=== PATIENT | female | born 1990 | race Caucasian/White ===

== ENCOUNTER 2019-12-28 11:38 | Outpatient (CLI) | payer BC, SELFPAY ==
[2019-12-28 11:51] LABS: Basophils Absolute Auto 0.1 K/mm3 (0.0-0.1); Basophils Percent Auto 0.9 % (0.2-1.2); Eosinophils Absolute Auto 0.1 K/mm3 (0-0.3); Eosinophils Percent Auto 1.5 % (0-4.4); Hemoglobin 14.9 g/dL (12.0-15.0); Immature Granulocyte Absolute 0.02 K/mm3 (0.00-0.031); Immature Granulocyte Percent A 0.3 % (0-0.5); Lymphocytes Absolute Auto 1.22 K/mm3 (0.9-3.2); Lymphocytes Percent Auto 17.7 % (18.3-44.2); Mean Corpuscular HGB Conc 33.1 g/dl (32-36); Mean Corpuscular Hemoglobin 30.6 pg (26-34); Mean Corpuscular Volume 92.4 fl (80-100); Mean Platelet Volume 11.9 fl (7.4-10.4); Monocytes Absolute Auto 0.5 K/mm3 (0.1-0.6); Monocytes Percent Auto 7.7 % (2.6-8.5); Neutrophils Percent Auto 71.9 % (45.5-73.1); Platelet Count Result 240 k/mm3 (150-375); Red Blood Count 4.87 M/mm3 (4.2-5.4); Red Cell Distribution Width 12.4 % (11.5-14.5); White Blood Count 6.9 K/mm3 (4.5-10.0)
[2019-12-28 16:32] LABS: Iron 65 ug/dL (37-170)
[2019-12-28 16:42] LABS: Percent Iron Saturation 21 % (20-50)
[2019-12-28 16:52] LABS: Alanine Aminotransferase 11 U/L (4-35); Albumin Level 4.4 g/dL (3.5-5.1); Alkaline Phosphatase 54 U/L (38-126); Aspartate Amino Transferase 21 U/L (14-36); Bilirubin,Total 0.4 mg/dL (0.2-1.3); Blood Urea Nitrogen 10 mg/dL (7-17); Calcium 9.4 mg/dL (8.4-10.2); Carbon Dioxide 24 mmol/L (22-30); Chloride 105 mmol/L (98-107); Estimated Glomerular Filt Rate > 60; Glucose 77 mg/dL (65-105); Sodium 138 mmol/L (137-145)
== END 2019-12-28 11:39 | disposition home or self-care (01) ==
LOC: ANHLAB 11:39
PROVIDERS: PCP Internal Medicine Hematology & Oncology; Visit Provider Internal Medicine Hematology & Oncology
DX: E83.110 Hereditary hemochromatosis (principal)
CPT/HCPCS: 36415; 80053; 82728; 83540; 83550; 85025

== ENCOUNTER 2020-04-03 08:24 | Outpatient (CLI) | payer BC, SELFPAY ==
[2020-04-03 08:52] LABS: Basophils Absolute Auto 0.1 K/mm3 (0.0-0.1); Basophils Percent Auto 1.1 % (0.2-1.2); Eosinophils Absolute Auto 0.2 K/mm3 (0-0.3); Eosinophils Percent Auto 3.4 % (0-4.4); Hematocrit 45.6 % (37.0-47.0); Hemoglobin 15.6 g/dL (12.0-15.0); Immature Granulocyte Absolute 0.01 K/mm3 (0.00-0.031); Immature Granulocyte Percent A 0.2 % (0-0.5); Lymphocytes Absolute Auto 1.28 K/mm3 (0.9-3.2); Mean Corpuscular HGB Conc 34.2 g/dl (32-36); Mean Corpuscular Hemoglobin 31.2 pg (26-34); Mean Corpuscular Volume 91.2 fl (80-100); Mean Platelet Volume 11.9 fl (7.4-10.4); Monocytes Absolute Auto 0.5 K/mm3 (0.1-0.6); Monocytes Percent Auto 9.7 % (2.6-8.5); Neutrophils Absolute Auto 3.5 K/mm3 (1.3-6.7); Neutrophils Percent Auto 62.6 % (45.5-73.1); Platelet Count Result 240 k/mm3 (150-375); Red Cell Distribution Width 12.1 % (11.5-14.5); White Blood Count 5.6 K/mm3 (4.5-10.0)
[2020-04-03 12:40] LABS: Iron 83 ug/dL (37-170)
[2020-04-03 12:47] LABS: Alanine Aminotransferase 9 U/L (4-35); Albumin Level 4.5 g/dL (3.5-5.1); Alkaline Phosphatase 52 U/L (38-126); Anion Gap 8 mmol/L (8-16); Aspartate Amino Transferase 18 U/L (14-36); Bilirubin,Total 0.3 mg/dL (0.2-1.3); Blood Urea Nitrogen 13 mg/dL (7-17); Calcium 9.6 mg/dL (8.4-10.2); Carbon Dioxide 27 mmol/L (22-30); Chloride 102 mmol/L (98-107); Estimated Glomerular Filt Rate > 60; Glucose 92 mg/dL (65-105); Potassium 4.1 mmol/L (3.4-5.0); Sodium 137 mmol/L (137-145)
[2020-04-03 12:49] LABS: Percent Iron Saturation 24 % (20-50)
== END 2020-04-03 08:25 | disposition home or self-care (01) ==
LOC: ANHLAB 08:29
PROVIDERS: PCP Internal Medicine; Visit Provider Internal Medicine Hematology & Oncology
DX: E83.110 Hereditary hemochromatosis (principal)
CPT/HCPCS: 36415; 80053; 82728; 83540; 83550; 85025

== ENCOUNTER 2020-06-28 10:36 | Outpatient (CLI) | payer BC, SELFPAY ==
[2020-06-28 11:19] LABS: Basophils Absolute Auto 0.1 K/mm3 (0.0-0.1); Basophils Percent Auto 1.1 % (0.2-1.2); Eosinophils Absolute Auto 0.1 K/mm3 (0-0.3); Eosinophils Percent Auto 1.6 % (0-4.4); Hematocrit 45.1 % (37.0-47.0); Hemoglobin 15.7 g/dL (12.0-15.0); Immature Granulocyte Absolute 0.03 K/mm3 (0.00-0.031); Immature Granulocyte Percent A 0.4 % (0-0.5); Lymphocytes Absolute Auto 1.67 K/mm3 (0.9-3.2); Lymphocytes Percent Auto 23.6 % (18.3-44.2); Mean Corpuscular HGB Conc 34.8 g/dl (32-36); Mean Corpuscular Hemoglobin 31.1 pg (26-34); Mean Corpuscular Volume 89.3 fl (80-100); Mean Platelet Volume 12.4 fl (7.4-10.4); Monocytes Absolute Auto 0.6 K/mm3 (0.1-0.6); Monocytes Percent Auto 8.1 % (2.6-8.5); Neutrophils Absolute Auto 4.6 K/mm3 (1.3-6.7); Neutrophils Percent Auto 65.2 % (45.5-73.1); Platelet Count Result 244 k/mm3 (150-375); Red Blood Count 5.05 M/mm3 (4.2-5.4); Red Cell Distribution Width 11.4 % (11.5-14.5); White Blood Count 7.1 K/mm3 (4.5-10.0)
[2020-06-28 11:35] LABS: Alanine Aminotransferase 16 U/L (4-35); Albumin Level 4.4 g/dL (3.5-5.1); Alkaline Phosphatase 48 U/L (38-126); Anion Gap 9 mmol/L (8-16); Aspartate Amino Transferase 26 U/L (14-36); Bilirubin,Total 0.7 mg/dL (0.2-1.3); Blood Urea Nitrogen 13 mg/dL (7-17); Calcium 9.7 mg/dL (8.4-10.2); Carbon Dioxide 27 mmol/L (22-30); Chloride 102 mmol/L (98-107); Cholesterol 154 mg/dL (0-200); Estimated Glomerular Filt Rate > 60; Glucose 85 mg/dL (65-105); HDL Direct 66 mg/dL; Potassium 4.3 mmol/L (3.4-5.0); Sodium 138 mmol/L (137-145); Triglycerides 68 mg/dL (<150)
[2020-06-28 11:46] LABS: LDL Cholesterol Direct 65 mg/dL
[2020-06-28 12:40] LABS: Folic Acid 14.6 ng/mL (2.76->20)
== END 2020-06-28 10:37 | disposition home or self-care (01) ==
PROVIDERS: PCP Internal Medicine; Visit Provider Clinical Nurse Specialist
DX: R41.3 Other amnesia (principal); E83.119 Hemochromatosis, unspecified; G43.909 Migraine, unspecified, not intractable, without status migrainosus; Z13.220 Encounter for screening for lipoid disorders
CPT/HCPCS: 36415; 80053; 80061; 82607; 82746; 84443; 85025

== ENCOUNTER 2020-09-11 14:28 | Outpatient (CLI) | payer BC, SELFPAY ==
--- NOTE | 2020-09-11 14:34 | ECHO_ITS ---
Patient Info Name: Rosemary Browning Age: 29 years : 1990 Gender: Female Ht: 67 in Wt: 145 lbs BSA: 1.77 m2 HR: 55 bpm BP: 120 / 86 mmHg Heart Rhythm: Bradycardia, Sinus Rhythm Technical Quality: Good Exam Date: 09/11/2020 2:52 PM Exam Location: [facility] Pulmonary Patient Status: Outpatient Admit Date: 09/11/2020 Staff Ordering Physician: Lisa Hendricks Passenger Coach Driver: Ha Thompson RDCS Attending Provider: Lisa Hendricks Referring Physician: Ruthie STROUD; Exam Type: CA echo doppler w bubble study Study Info Indications R55 - Syncope and collapse Complete two-dimensional, color flow and Doppler transthoracic echocardiogram is performed with agitated saline. Contrast/Agitated Saline Contrast/Ag. Saline: Agitated Saline Amount: 18.00 ml Administered By: Leidy Osuna RN Existing IV Access: Yes History/Risk Factors Syncope and collapse; tachycardia. Summary 1. Left ventricular chamber dimension is normal. 2. Left ventricular systolic function is normal, estimated at 60-65%. 3. The left ventricular diastolic function is normal. 4. E/e' 6 is not elevated. Left Ventricle E/e' 6 is not elevated. Left ventricular chamber dimension is normal. Left ventricular systolic function is normal, estimated at 60-65%. The left ventricular diastolic function is normal. Right Ventricle Right ventricular chamber dimension is normal. Right ventricular systolic function is normal. Left Atria Left atrial chamber dimension is normal. Right Atria Right atrial chamber dimension is normal. Atrial Septum Agitated saline injection with and without valsalva maneuver opacified right sided cardiac chambers without shunt to left sided cardiac chambers. Intact interatrial septum visualized by agitated saline imaging. Aortic Valve The aortic valve is probable trileaflet. There is no aortic valve stenosis. There is no aortic valve regurgitation. Pulmonic Valve There is no pulmonic regurgitation. Mitral Valve There is no mitral valve stenosis. There is no mitral valve regurgitation. Tricuspid Valve There is no tricuspid valve regurgitation. Pericardium/Pleural There is no pericardial effusion. Inferior Vena Cava Inferior vena cava is not well visualized. Aorta The aortic root size at the sinus of Valsalva is normal. Left Ventricular Outflow Tract Name Value Normal LVOT 2D LVOT Diameter 2.0 cm LVOT Doppler LVOT Peak Gradient 5 mmHg LVOT Mean Gradient 2 mmHg LVOT VTI 22 cm LVOT VTI/AV VTI Ratio 0.6 LVOT Stroke Volume 69 ml LVOT CO 4.0 l/min LVOT CI 2.3 l/min/m2 Mitral Valve Name Value Normal
--- NOTE | 2020-09-14 11:47 | WPDHOLTEREM ---
Holter/Event Monitor Holter/Event Monitor Date of procedure: 09/11/20 Procedure Type: 48 hour holter monitor Indications: Syncope Conclusion: 1. 48 hour holter monitor on 09/11/20. 2. Underlying rhythm is sinus rhythm. HR range 43-188 bpm; average HR 68 bpm. Fast HR at 188 bpm at 12:57 pm. 3. No premature supraventricular complexes. No supraventricular tachycardia. 4. No premature ventricular complexes. No ventricular tachycardia. 5. No sinoatrial or atrioventricular blocks. No significant pauses greater than 2 seconds. 6. Patient reports symptoms of chest tightness, lightheadedness, heart racing which demonstrate sinus rhythm, HR range 50-118 bpm.
== END 2020-09-11 14:29 | disposition home or self-care (01) ==
LOC: ANHCARD 14:28
PROVIDERS: PCP Internal Medicine; Visit Provider Clinical Nurse Specialist
DX: R55 Syncope and collapse (principal)
CPT/HCPCS: 93225; 93226; 93306; 96375

== ENCOUNTER 2020-09-25 08:37 | Outpatient (CLI) | payer BC, SELFPAY ==
[2020-09-25 08:57] LABS: Basophils Absolute Auto 0.1 K/mm3 (0.0-0.1); Basophils Percent Auto 1.8 % (0.2-1.2); Eosinophils Absolute Auto 0.2 K/mm3 (0-0.3); Eosinophils Percent Auto 3.6 % (0-4.4); Hematocrit 44.9 % (37.0-47.0); Hemoglobin 15.7 g/dL (12.0-15.0); Immature Granulocyte Absolute 0.01 K/mm3 (0.00-0.031); Immature Granulocyte Percent A 0.2 % (0-0.5); Lymphocytes Absolute Auto 1.71 K/mm3 (0.9-3.2); Lymphocytes Percent Auto 34.1 % (18.3-44.2); Mean Corpuscular Hemoglobin 30.9 pg (26-34); Mean Corpuscular Volume 88.4 fl (80-100); Mean Platelet Volume 11.7 fl (7.4-10.4); Monocytes Absolute Auto 0.4 K/mm3 (0.1-0.6); Monocytes Percent Auto 8.8 % (2.6-8.5); Neutrophils Absolute Auto 2.6 K/mm3 (1.3-6.7); Neutrophils Percent Auto 51.5 % (45.5-73.1); Platelet Count Result 278 k/mm3 (150-375); Red Blood Count 5.08 M/mm3 (4.2-5.4); Red Cell Distribution Width 11.6 % (11.5-14.5)
[2020-09-25 11:39] LABS: Iron 145 ug/dL (37-170)
[2020-09-25 11:53] LABS: Percent Iron Saturation 53 % (20-50)
== END 2020-09-25 08:38 | disposition home or self-care (01) ==
LOC: ANHLAB 08:39
PROVIDERS: PCP Internal Medicine; Visit Provider Internal Medicine Hematology & Oncology
DX: E83.110 Hereditary hemochromatosis (principal)
CPT/HCPCS: 36415; 82728; 83540; 83550; 85025

== ENCOUNTER → 2020-09-25 13:12 | Outpatient (CLI) | payer BC, SELFPAY ==
--- NOTE | ~2020-09-25 | MR_ITS ---
EXAMINATION: MR brain/brain stem wo/w con DATE: 09/25/2020 13:52 INDICATION: Syncope and collapse. TECHNIQUE: Magnetic resonance imaging (MRI) of the brain and brainstem was performed without and with 13 mL MultiHance intravenous contrast. Sequences included sagittal and axial T1-weighted FSE, axial diffusion-weighted FS EPI, axial T2*-weighted GRE, axial T2-weighted FLAIR Propeller, and axial T2-we ighted Propeller. Postcontrast sequences included axial and coronal T1-weighted FSE. Apparent diffusi on coefficient (ADC) maps were created. COMPARISON: None. FINDINGS: There are 2 foci of increased T2-weighted signal intensity in the cerebral white matter, wh ich is within normal limits for the patient's age. There is no intracranial hemorrhage, acute infarct ion, or abnormal intracranial mass lesion. The ventricles are normal in size. There are mucous retent ion cysts in the maxillary sinuses. The orbits are normal. There is a trace left mastoid effusion. IMPRESSION: 1. Normal brain. Reviewed, dictated and finalized at location A. UMER EDUCATOR IMPRESSION: 1. Normal brain.
[2020-09-25 13:31] LABS: Estimated Glomerular Filt Rate > 60
== END ==
PROVIDERS: PCP Internal Medicine; Visit Provider Clinical Nurse Specialist
DX: G43.909 Migraine, unspecified, not intractable, without status migrainosus (principal); R55 Syncope and collapse
CPT/HCPCS: 70553; A9577

== ENCOUNTER 2020-11-03 08:01 | Outpatient (CLI) | payer BC, SELFPAY | END 2020-11-03 08:02 | disposition home or self-care (01) | LOC: ANHCOVIDVC 08:01 | PROVIDERS: PCP Internal Medicine | DX: Z23 Encounter for immunization (principal) | CPT/HCPCS: 0001A; 91300 ==

== ENCOUNTER 2020-11-24 07:59 | Outpatient (CLI) | payer BC, SELFPAY | END 2020-11-24 08:00 | disposition home or self-care (01) | LOC: ANHCOVIDVC 07:59 | PROVIDERS: PCP Internal Medicine | DX: Z23 Encounter for immunization (principal) | CPT/HCPCS: 0002A; 91300 ==

== ENCOUNTER → 2021-02-17 10:52 | Outpatient (CLI) | payer BC, SELFPAY ==
--- NOTE | ~2021-02-17 | US_ITS ---
EXAMINATION: US OB <=14 wk fetus w TV DATE: 02/17/2021 11:18 INDICATION: Amenorrhea. Gestational dating. TECHNIQUE: Real-time transabdominal and transvaginal obstetric ultrasound. FINDINGS: Ultrasound dated 02/09/2021 The uterus measures 8.3 x 5.4 x 6.3 cm. There is an intrauterine gestational sac, with pole yovany ntified. The crown rump length measures 0.91 cm, which correlates with a estimated gestational age o f 6 weeks 6 days. heart tones are identified measuring 121 bpm. There is a corpus luteal cyst of the right ovary measuring 2.8 cm. There is a small subchorionic hemorrhage measuring 10 x 8 x 4 m m. IMPRESSION: 1. SL IUP with an EGA of 6 weeks, 6 days (EDC by current ultrasound of 10/07/2021). 2: Small subchorionic hemorrhage. Reviewed, dictated and finalized at location A. IMPRESSION: 1. SL IUP with an EGA of 6 weeks, 6 days (EDC by current ultrasound of ). 2: Small subchorionic hemorrhage.
== END ==
PROVIDERS: Visit Provider Student in an Organized Health Care Education/Training Program
DX: Z32.00 Encounter for pregnancy test, result unknown (principal); N91.2 Amenorrhea, unspecified; O46.91 Antepartum hemorrhage, unspecified, first trimester; Z3A.01 Less than 8 weeks gestation of pregnancy
CPT/HCPCS: 76801; 76817

== ENCOUNTER → 2021-04-03 02:35 | Outpatient (CLI) | payer BC, SELFPAY ==
[2021-04-04 15:33] LABS: SARS-CoV-2 RNA PCR Negative
== END ==
PROVIDERS: PCP Internal Medicine; Visit Provider Nurse Practitioner
DX: R68.89 Other general symptoms and signs (principal); Z20.822 Contact with and (suspected) exposure to COVID-19
CPT/HCPCS: C9803; U0003; U0005

== ENCOUNTER 2021-09-20 09:40 | Outpatient (CLI) | payer BC, SELFPAY ==
--- NOTE | ~2021-09-20 | US_ITS ---
EXAMINATION: US OB limited w BPP DATE: 09/20/2021 11:57 ANIMAL EVISCERATOR INDICATION: Hypertension. TECHNIQUE: Real-time transabdominal obstetric ultrasound. FINDINGS: Ultrasound dated 02/17/2021 There is a single living fetus in vertex presentation. The placenta is anterior without placenta pre via. cardiac activity and movement is noted with a heart rate of 150 beats per minute. A mniotic fluid index is measuring 18.5 cm. Biophysical profile: breathin of 2 movement: 2 of 2 tone: 2 of 2 Amniotic flud pocket: 2 of 2 Total score: 8 of 8 IMPRESSION: 1. Single living intrauterine in vertex presentation. 2: Total biophysical profile score of 8/8. 3: Normal JANA measures 18.5 cm. Reviewed, dictated and finalized at location B. AL EVISCERATOR
[2021-09-20 10:27] LABS: Basophils Absolute Auto 0.1 K/mm3 (0.0-0.1); Basophils Percent Auto 0.6 % (0.2-1.2); Eosinophils Absolute Auto 0.2 K/mm3 (0-0.3); Eosinophils Percent Auto 1.5 % (0-4.4); Hematocrit 38.1 % (37.0-47.0); Hemoglobin 12.8 g/dL (12.0-15.0); Immature Granulocyte Absolute 0.16 K/mm3 (0.00-0.031); Immature Granulocyte Percent A 1.5 % (0-0.5); Immature Platelet Fraction Pct 17.3 % (0.9-11.2); Lymphocytes Absolute Auto 1.56 K/mm3 (0.9-3.2); Lymphocytes Percent Auto 14.4 % (18.3-44.2); Mean Corpuscular HGB Conc 33.6 g/dl (32-36); Mean Corpuscular Hemoglobin 29.5 pg (26-34); Mean Corpuscular Volume 87.8 fl (80-100); Monocytes Percent Auto 8.9 % (2.6-8.5); Neutrophils Absolute Auto 7.9 K/mm3 (1.3-6.7); Neutrophils Percent Auto 73.1 % (45.5-73.1); Platelet Count Result 198 k/mm3 (150-375); Red Blood Count 4.34 M/mm3 (4.2-5.4); Red Cell Distribution Width 12.6 % (11.5-14.5); White Blood Count 10.8 K/mm3 (4.5-10.0)
[2021-09-20 10:31] VITALS: BP 136/73; PULSE 65
[2021-09-20 10:32] LABS: Add Urine Microscopic? YES; Appearance Urine Cloudy (Clear); Bacteria Urine 4+ /hpf; Bilirubin Urine Negative (Negative); Blood Urine 2+ (Negative); Color Urine Yellow (Yellow); Glucose Urine UA Negative (Negative); Ketones Urine Negative (Negative); Leukocyte Esterase Ur Trace LEU/UL (NEGATIVE); Mucus Urine Rare /lpf; Nitrate Urine Negative (Negative); Protein Urine Negative (Negative); Squamous Epithelial Cell Urine Occasional /hpf (Few); Urobilinogen Urine Negative mg/dL (<2.0)
[2021-09-20 10:36] LABS: Specific Grav Ur 1.004 (1.001-1.035)
[2021-09-20 10:45] LABS: Alanine Aminotransferase 16 U/L (4-35); Albumin Level 3.5 g/dL (3.5-5.1); Alkaline Phosphatase 140 U/L (38-126); Anion Gap 5 mmol/L (8-16); Aspartate Amino Transferase 22 U/L (14-36); Bilirubin,Total 0.3 mg/dL (0.2-1.3); Blood Urea Nitrogen 8 mg/dL (7-17); Calcium 9.2 mg/dL (8.4-10.2); Carbon Dioxide 22 mmol/L (22-30); Chloride 107 mmol/L (98-107); Estimated Glomerular Filt Rate > 60; Glucose 66 mg/dL (65-110); Potassium 3.7 mmol/L (3.4-5.0); Sodium 134 mmol/L (137-145); Uric Acid 4.8 mg/dL (2.5-7.5)
[2021-09-20 10:46] VITALS: BP 134/82; PULSE 66
[2021-09-20 11:01] VITALS: BP 135/68; PULSE 67
[2021-09-20 11:16] VITALS: BP 137/82; PULSE 64
[2021-09-20 11:27] VITALS: BP 136/73; PULSE 70
[2021-09-20 11:44] LABS: Creatinine Urine 30.2 mg/dL; Total Protein Urine Random 15 mg/dL
== END 2021-09-20 12:09 | disposition home or self-care (01) ==
LOC: ANHOBOP 09:44 → ANHOBPP 09:44
PROVIDERS: PCP Internal Medicine; Visit Provider Student in an Organized Health Care Education/Training Program
DX: O13.9 Gestational [pregnancy-induced] hypertension without significant proteinuria, unspecified trimester (principal); Z3A.00 Weeks of gestation of pregnancy not specified
CPT/HCPCS: 36415; 59025; 76815; 76819; 80053; 81001; 82570; 84156; 84550; 85025; 85055; 87086; 99199

== ENCOUNTER 2021-09-25 11:24 | Inpatient (IN) | payer BC, SELFPAY ==
[2021-09-25] VITALS (157 sets, daily range): BP systolic 91–155; BP diastolic 53–96; PULSE 66–126; RESP 16–18; TEMP 36.8–37.9; O2SAT 95–100; BMI 29.0
--- NOTE | 2021-09-25 11:48 | LDADM ---
This patient, Rosemary Browning, was admitted to Labor/Delivery/Recovery 104 on 09/25/21 at 11:24. Plans for labor, pain management and were discussed with patient. Patient/family oriented to hospital policies and general routines including ID bracelet, bed and alarms, visiting hours, pain management, procedures, bathroom and other care routines, personal items, smoking policy, room service/diet and guest tray routines, infant security routines, and visiting hours. Patient/Family are encouraged to report perceived risks to care and to ask questions if they do not understand what they are told or what they should do. See OBIX for further documentation.
[2021-09-25 12:13] LABS: Basophils Absolute Auto 0.1 K/mm3 (0.0-0.1); Basophils Percent Auto 0.6 % (0.2-1.2); Eosinophils Absolute Auto 0.1 K/mm3 (0-0.3); Eosinophils Percent Auto 1.2 % (0-4.4); Hematocrit 40.4 % (37.0-47.0); Hemoglobin 13.6 g/dL (12.0-15.0); Immature Granulocyte Absolute 0.11 K/mm3 (0.00-0.031); Immature Granulocyte Percent A 1.1 % (0-0.5); Lymphocytes Absolute Auto 1.23 K/mm3 (0.9-3.2); Lymphocytes Percent Auto 12.6 % (18.3-44.2); Mean Corpuscular HGB Conc 33.7 g/dl (32-36); Mean Corpuscular Hemoglobin 29.3 pg (26-34); Mean Corpuscular Volume 87.1 fl (80-100); Mean Platelet Volume 12.7 fl (7.4-10.4); Monocytes Absolute Auto 0.7 K/mm3 (0.1-0.6); Monocytes Percent Auto 7.4 % (2.6-8.5); Neutrophils Absolute Auto 7.6 K/mm3 (1.3-6.7); Neutrophils Percent Auto 77.1 % (45.5-73.1); Platelet Count Result 153 k/mm3 (150-375); Red Blood Count 4.64 M/mm3 (4.2-5.4); White Blood Count 9.8 K/mm3 (4.5-10.0)
[2021-09-25] MEDS: LACTATED RINGERS 1,000 ML 125 ML IV CONT ×2 (14:12→15:37)
[2021-09-25] MEDS: OXYTOCIN 30 UNITS/NS 500 ML 30 UNITS/500 ML BAG 6 UNITS IV CONT (14:13)
--- NOTE | 2021-09-25 15:03 | PM.IMHP ---
H&P: HPI History of Present Illness Date/Time: 09/25/21 15:03 Patient is a 30-year-old last menstrual period 12/10/2020 currently 38 weeks 2 days gestation with VITO 10/07/2021. Patient is dated by ultrasound on 02/17/2021 at 6 weeks 6 days gestation. Patient presents to labor and delivery following PROM during routine office visit earlier today. Patient reported experiencing one contraction yesterday. Denies any vaginal bleeding. Reports good movement. Chief Complaint: IUP at 38w2d gestation PROM Review of Systems Review of Systems: All systems reviewed & are unremarkable except as noted in HPI and below Constitutional: Constitutional: Reports as per HPI, Reports no additional constitutional complaints, Denies chills, Denies fever(s), Denies headache(s) and Denies night sweats Eyes: Eyes: Reports as per HPI and Reports no additional eye complaints ENT: Reports system reviewed and no additional complaints, except as documented, Reports as per HPI, Reports Normal hearing present and Denies headache(s) Cardiovascular: Cardiovascular: Reports as per HPI, Reports no additional cardiovascular complaints, Denies chest pain and Denies dyspnea Respiratory: Respiratory: Reports as per HPI, Reports no additional respiratory complaints, Denies cough and Denies dyspnea Gastrointestinal: Gastrointestinal: Reports as per HPI, Reports no additional gastrointestinal complaints, Denies abdominal pain, Denies change in bowel habits, Denies change in stool character, Denies nausea and Denies vomiting Genitourinary: Genitourinary: Reports no additional female genitourinary complaints, Reports as per HPI, Denies abnormal vaginal bleeding, Denies genital lesions, Denies hot flashes, Denies dyspareunia, Denies pelvic pain, Denies sexual dysfunction, Denies urinary incontinence, Denies vaginal discharge, Denies vaginal dryness and Denies vaginal odor Musculoskeletal: Musculoskeletal: Reports no additional musculoskeletal complaints and Reports as per HPI Integumentary/Breasts: Skin/Breast: Reports system reviewed and no additional complaints, except as docu, Reports as per HPI, Denies breast pain and Denies nipple discharge Neurologic: Reports system reviewed and no additional complaints, except as documented, Reports as per HPI, Reports Normal hearing present and Denies headache(s) Psychiatric: Psychiatric: Reports no additional psychiatric complaints, Reports as per HPI, Denies anxiety and Denies depression Endocrine: Endocrine: Reports no additional endocrine complaints and Reports as per HPI Hematologic/Lymphatic: Hematologic/Lymphatic: Reports no additional hematologic/lymphatic complaints and Reports as per HPI Allergic/Immunologic: Allergic/Immunologic: Reports no additional allergic/immunologic complaints and Reports as per HPI FORMERLY [facility], [facility]1983 Past Medical History Medical History (Updated 09/25/21 @ 15:08 by Michela Hensley MD) Acid reflux Broken wrist Right Hemochromatosis Family History Family History Mother Ulcer Grandparent Cancer Heart disease Lung cancer Carcinoma of colon Social History Social History Smoking status: Never smoker Alcohol intake: current Substance use: unknown Spiritual care concerns: No Meds Home Medications and Allergies Home Medications Medication Instructions Recorded Confirmed Type docosahexaenoic acid 200 mg capsule 200 mg PO DAILY 03/22/21 09/25/21 History cholecalciferol (vitamin D3) 50 50 mcg PO DAILY 04/19/21 09/25/21 History mcg (2,000 unit) capsule blood pressure monitor #1 ea 09/20/21 09/20/21 Rx diphenhydramine-zinc acetate 1 1 applic TOPICAL BID 09/25/21 09/25/21 History %-0.1 % topical cream Allergies Allergy/AdvReac Type Severity Reaction Status Date / Time Penicillins Allergy Hives Verified 09/25/21 10:44 Vital Signs Vital Signs - 24 hr
--- NOTE | 2021-09-25 15:58 | WPDANESEPPF ---
Anes - Initial Pre Proc Eval Date/Time: 09/25/21 15:58 Surgeon: Michela Hensley MD Pre Op Diagnosis: Leaking Patient Data Age: 30 Gender: F Height: 1.7 m Weight: 84 kg Last Vital Signs Temp 36.8 C 09/25/21 13:30 Pulse 76 09/25/21 15:56 BP 140/78 09/25/21 15:56 Pulse Ox 100 09/25/21 15:55 Allergies Allergy/AdvReac Type Severity Reaction Status Date / Time Penicillins Allergy Hives Verified 09/25/21 10:44 Home Medications Medication Instructions Recorded Confirmed Type docosahexaenoic acid 200 mg capsule 200 mg PO DAILY 03/22/21 09/25/21 History cholecalciferol (vitamin D3) 50 50 mcg PO DAILY 04/19/21 09/25/21 History mcg (2,000 unit) capsule blood pressure monitor #1 ea 09/20/21 09/20/21 Rx diphenhydramine-zinc acetate 1 1 applic TOPICAL BID 09/25/21 09/25/21 History %-0.1 % topical cream Laboratory Tests 09/25/21 09/25/21 09/25/21 11:43 11:43 11:43 WBC 9.8 K/mm3 K/mm3 (4.5-10.0) RBC 4.64 M/mm3 M/mm3 (4.2-5.4) Hgb 13.6 g/dL g/dL (12.0-15.0) Hct 40.4 % % (37.0-47.0) MCV 87.1 fl fl (80-100) MCH 29.3 pg pg (26-34) MCHC 33.7 g/dl g/dl (32-36) RDW 13.0 % % (11.5-14.5) Plt Count 153 k/mm3 k/mm3 (150-375) MPV 12.7 fl H fl (7.4-10.4) Immature Gran % (Auto) 1.1 % H % (0-0.5) Neut % (Auto) 77.1 % H % (45.5-73.1) Lymph % (Auto) 12.6 % L % (18.3-44.2) [place] % (Auto) 7.4 % % (2.6-8.5) Eos % (Auto) 1.2 % % (0-4.4) Baso % (Auto) 0.6 % % (0.2-1.2) Lymph # (Auto) 1.23 K/mm3 K/mm3 (0.9-3.2) [place] # (Auto) 0.7 K/mm3 H K/mm3 (0.1-0.6) Eos # (Auto) 0.1 K/mm3 K/mm3 (0-0.3) Baso # (Auto) 0.1 K/mm3 K/mm3 (0.0-0.1) Abs Immat Gran (auto) 0.11 K/mm3 H K/mm3 (0.00-0.031) Absolute Neuts (auto) 7.6 K/mm3 H K/mm3 (1.3-6.7) Absolute Nucleated RBC 0.0 K/mm3 K/mm3 (0.0-0.012) Nucleated RBC % 0.0 % % (0.0-0.2) RPR Pending Rubella IgG Antibody Blood Type O Positive Antibody Screen Negative 09/25/21 11:43 WBC RBC Hgb Hct MCV MCH MCHC RDW Plt Count MPV Immature Gran % (Auto) Neut % (Auto) Lymph % (Auto) [place] % (Auto) Eos % (Auto) Baso % (Auto) Lymph # (Auto) [place] # (Auto) Eos # (Auto) Baso # (Auto) Abs Immat Gran (auto) Absolute Neuts (auto) Absolute Nucleated RBC Nucleated RBC % RPR Rubella IgG Antibody 5.0 IU/ML L IU/ML (10 - ) Blood Type Antibody Screen Patient hx anesthesia problems: none Family hx anesthesia problems: none Results Review: All pre-operative results and documents have been reviewed as part of the pre-operative evaluation. [facility] Past Medical History Medical History Acid reflux Broken wrist Right Hemochromatosis Family History Family History Mother Ulcer Grandparent Cancer Heart disease Lung cancer Carcinoma of colon Social History Social History Smoking status: Never smoker Alcohol intake: current Substance use: unknown Spiritual care concerns: No Anes - Eval Final PreProcedure Day of Procedure 09/25/21 15:58 Patient weight: overweight Heart: regular rate and rhythm Lungs: clear to auscultation Neurological: alert and oriented ASA classification: III Emergent: no Anesthetic plan: proceed Anesthesia type and monitoring: regional epidural and standard monitoring Results Review: All pre-operative results and documents have been reviewed as part of the pre-operative evaluatio
[2021-09-25 16:49] LABS: Rapid Plasma Reagin Non-Reactive (NonReactive)
[2021-09-25] MEDS: ACETAMINOPHEN 500 MG TABLET 1000 MG PO (19:01)
[2021-09-25] MEDS: ONDANSETRON INJ 4 MG/2 ML VIAL IV PUSH (21:49)
[2021-09-26] VITALS (44 sets, daily range): BP systolic 121–172; BP diastolic 61–123; PULSE 58–122; RESP 16–20; TEMP 36.6–37.7; O2SAT 96–100
[2021-09-26] MEDS: OXYTOCIN 30 UNITS/NS 500 ML 30 UNITS/500 ML BAG 125 UNITS IV CONT (03:00)
--- NOTE | 2021-09-26 03:20 | P.PCNOB_ITS ---
OB - Delivery Note Procedure Delivery date: 09/26/21 Procedure: The patient is a 30-year-old now who presented to labor and delivery on 09/25/2020 at 38 weeks 2 days gestation. Patient experienced PROM during routine office visit earlier in the morning. Clear amniotic fluid was no suhas. She was approximately 2 cm dilated at that time. Patient was transferred to labor and delivery and admitted. Patient began fernanda on her own and was observed for few hours to see if she would progress into active labor. She did not, however, make further significant cervical change and decision was made to augment labor with Pitocin. Pitocin was started and slowly titrated throughout the afternoon. Patient became uncomfortable and requested an epidural for pain management that was placed without difficulty. Pitocin was continuously titrated and patient made slow, however, progressive cervical change throughout the evening and institutional custodian on 09/26/2021. Patient was noted to be fully dilated at approximately 1:00 a.m. Patient was encouraged to push and found to be pushing well. She was prepped and draped for delivery. At 2:33 a.m., patient delivered head atraumatically without difficulty in SYED presentation. Occiput restituted to maternal right side. With subsequent push, the infant's neck, shoulders, and rest of body delivered without difficulty. Infant was crying spontaneously. Infant's nose and mouth were suctioned with bulb suction. Infant was placed on maternal abdomen where care was assumed by awaiting nursing staff. Delayed cord clamping was performed for approximately 60 seconds. The cord was clamped and cut. A segment of cord was collected for cord gases. Cord blood was collected. The placenta was delivered spontaneously and intact. On inspection, a 2nd degree perineal laceration was noted as well as a left vaginal wall laceration. These lacerations were repaired with 2-0 and 3-0 Vicryl in the usual fashion. Moderate uterine bleeding was noted. A moderate amount of blood clots were evacuated from lower uterine segment. Uteri ne fundus was firm with bimanual massage. Straight catheterization was performed with return of approximately 30 cc of concentrated urine. Bleeding subsided. Estimated blood loss for entire delivery was 400 cc. The was a live-born male infant, Apgars 8 and 9, weight pending. Both mother and baby doing well at end of delivery. events: Premature Rupture of Membrane Delivery augmentation: pitocin Delivery monitor: external FHT and external uterine Route of delivery: Laceration Description: Perineal - 2nd Degree and Vaginal - 1st Degree (left vaginal wall ) Delivery repair: vicryl (2-0 and 3-0 vicryl) Specimen: Yes (cord blood, cord gases) Quantitative Blood Loss (ml): 400 Anesthesia type: Epidural Disposition: floor Complications: No immediate complications [place] Baby Date of : 09/26/21 Time of : 02:33 Weeks of gestation at delivery: 38 (38.3) gender: Male presentation: vertex position: Right Occiput Anterior Placenta delivery description: Spontaneous cord vessel description: 3 Vessels, Around Body x1 and Delayed Cord Clamping (x 60s) score one minute: 8 score five minutes: 9 AMG Delivery Billing Delivery Delivery: Delivery Charge
[2021-09-26] MEDS: IBUPROFEN 600 MG TABLET PO ×3 (04:01→19:01)
[2021-09-26] MEDS: ACETAMINOPHEN 325 MG TABLET 650 MG PO ×3 (04:02→19:01)
--- NOTE | 2021-09-26 06:15 | PC.NURSE ---
Patient transferred to post room #283 per wheelchair from labor and delivery. Support person present. Oriented to unit, room, information board, rooming in, admission packet and security measures. Patient verbalizes understanding.
[2021-09-26] MEDS: DOCUSATE SODIUM 100 MG CAPSULE PO ×2 (12:21→19:01)
[2021-09-26] MEDS: MULTIVIT/MIN/PREN/FOL AC/IRON TABLET 1 TAB PO (12:21)
--- NOTE | 2021-09-26 13:17 | PC.NURSE ---
0700 - Primary RN reported infant undressed to the diaper and skin to skin at 0700. Mom was instructed to call for assistance with . 0900 - Introductions made to parents. Mom is using the restroom. was brought back to the room recently after being assessed. RN encouraged dad to undress to the diaper and place skin to skin when mom is finished. Reviewed feeding cues and parents voiced understanding to call for assistance if infant doesn't latch or there's discomfort with . 0950 - Mother led the discussion of her desires and plans to feeding her baby. Reviewed handwashing to prevent infection before and after taking care of her baby. Mother verbalizes she is unable to independently latch recently but somewhat success earlier. Encouraged parents with skin to skin, stimulation with touch, talking and mom hand expressing colostrum into infants mouth. RN assisted mom with infant to the right breast in football position using nipple to nose with asymmetrical 140-degree latch. She denies any nipple discomfort. Reviewed there is to be no pain with , how to detach infant from the breast, visuals to watch for to confirm effective using visuals of rocking motion and suck/swallow ratios. Reviewed effective latching with the resources breast tool/handout/mom and baby guide. Nipple tenderness is relieved with improving positioning and effective latching. Use of warm, wet compress to nipples and air dry for improved comfort. Infant was able to maintain effective latch. Mother has verbalized understanding and demonstrated knowledge of watching for feeding cues for responsive feeding or how to stimulate to initiate from the start of the last feeding. Mother voiced understanding to feed when she sees feeding cues, 8-12 times in 24 hours approximately every 2-3 hours from the start of the last feeding or she has discomfort with nursing. Reported to primary RN.
[2021-09-26] MEDS: TETANUS,DIPHTHERIA,AC PERTUSSIS ADULT (0.5 ML) BOOSTRIX IM (18:59)
[2021-09-27] MEDS: IBUPROFEN 600 MG TABLET PO ×4 (01:48→23:48)
[2021-09-27] MEDS: ACETAMINOPHEN 325 MG TABLET 650 MG PO ×3 (01:50→17:23)
--- NOTE | 2021-09-27 07:02 | PC.NURSE ---
09/26/21 1645 - Mother independently brought infant to the left breast in football position. nursed eagerly, with steady draws and occasional swallowing noted. Reviewed signs of a correct latch, effective nursing and suck swallow ratio. was able to maintain latch without discomfort to mother. Nipple care reviewed. Mother had on the right breast in football earlier. She stated it felt uncomfortable and took the baby off the breast. Right nipple is red, sore and the skin is not intact. Encouraged mom to use wet, warm compress to the nipple and allow to air dry. Mother verbalizes understanding of what a not optimal vs optimal latch feels like. Instructed mother to call out for RN assistance if she is unable to latch for feeding or she has discomfort with nursing. Instructed feeding should be initiated three hours from start of last feeding or if feeding cues are noted before. Mother voiced understanding of information shared.
--- NOTE | 2021-09-27 07:42 | WPDANLDPN2 ---
Anes-Prog Note L&D Date/Time: 09/27/21 07:42 Comfortable throughout: labor and delivery Neuraxial method: epidural Epidural/Spinal procedure site: clean & non-tender Neuro status: Neuro function grossly intact. Cardiovascular status: normal Respiratory status: normal Airway patency: baseline Mental status: baseline Post-Op hydration status: normal Vital Signs: Last Vital Signs Temp 36.7 C 09/26/21 18:40 Pulse 61 09/26/21 18:40 Resp 18 09/26/21 18:40 BP 129/61 09/26/21 18:40 Pulse Ox 99 09/26/21 12:15 Pain score (VAS): 0 I/O: Intake & Output 09/26/21 09/26/21 09/27/21 15:59 23:59 07:59 Intake Total 500 Balance 500 Post-procedural complaints: none Patient feedback: Patient satisfied with anesthetic care.
[2021-09-27 08:00] VITALS: BP 118/71; PULSE 82; RESP 16; TEMP 36.6; O2SAT 100
[2021-09-27] MEDS: SIMETHICONE 80 MG TAB.CHEW PO (10:12)
[2021-09-27] MEDS: MULTIVIT/MIN/PREN/FOL AC/IRON TABLET 1 TAB PO (10:14)
[2021-09-27] MEDS: DOCUSATE SODIUM 100 MG CAPSULE PO ×2 (10:14→17:23)
--- NOTE | 2021-09-27 10:58 | PM.OBPNVD ---
OB - PN: Subj Subjective Date/time seen: 09/27/21 10:58 Patient comments: pain well controlled, tolerating diet and other (Decreasing lochia.) baby status: doing well and nursing well [place] feeding status: exclusively breast feeding OB - PN: Obj Data Labs CBC & Chem 7: 09/25/21 11:43 OB - PN A/P Plan day: 1 Plan: routine care Comments: Patient doing well. Continue routine care. Time Spent With Patient Time: Total time spent is greater than 50% in coordination of care (as documented) at patient's floor/unit and/or counseling patient: Exam Psych: Affect: normal affect Other: Abd: fundus firm below umbilicus, nontender Perineum: healing Ext: nontender
[2021-09-27 11:06] LABS: Hemoglobin 10.4 g/dL (12.0-15.0)
--- NOTE | 2021-09-27 11:36 | PC.NURSE ---
0955 - Mother led the conversation regarding well without discomfort. Mother voiced understanding to call for assistance if baby doesn't latch or there is discomfort with nursing. Parents demonstrate with actions and words understanding of what visuals and sounds to confirm there is optimal latch and nursing. Reported to primary RN.
[2021-09-27] MEDS: HYDROCORTISONE 1% 30 GM CREAM 1 APPLIC TOPICAL (19:24)
[2021-09-27 19:29] VITALS: BP 132/67; PULSE 85; RESP 18; TEMP 36.8; O2SAT 99
[2021-09-28 07:30] VITALS: BP 136/79; PULSE 80; RESP 16; TEMP 36.5; O2SAT 99
[2021-09-28] MEDS: IBUPROFEN 600 MG TABLET PO (07:52)
[2021-09-28] MEDS: DOCUSATE SODIUM 100 MG CAPSULE PO (08:54)
[2021-09-28] MEDS: MEASLES,MUMPS,RUBELLA VACCINE 0.5 ML VIAL (08:55)
--- NOTE | 2021-09-28 09:10 | PC.NURSE ---
Patient viewed the discharge video Mother & Baby Care, The First Two Weeks . Patient was given the opportunity and encouraged to ask questions. Patient verbalized understanding of information shared and has been given the mother/baby guide for home reference.
--- NOTE | 2021-09-28 10:31 | PM.OBPNVD ---
OB - PN: Subj Subjective Date/time seen: 09/28/21 10:31 The rash on abdomen better with hydrocortisone. She also noticed some bumps on her fingers that are itchy. Patient comments: pain well controlled, tolerating diet and other (Decreasing lochia.) [place] baby status: doing well and nursing well feeding status: exclusively breast feeding OB - PN: Obj Data Labs CBC & Chem 7: 09/27/21 10:43 Labs: Laboratory Results - last 24 hr 09/27/21 10:43 Hgb 10.4 L D Hct 31.0 L OB - PN A/P Assessment and Plan (1) PUPP (pruritic urticarial papules and plaques of ): Code(s): O26.86 - Pruritic urticarial papules and plaques of (PUPPP) Status: Acute Assessment and Plan: Continue topical hydrocortisone. Plan day: 2 Plan: routine care Comments: Patient doing well. Will discharge home today. Discharge precautions discussed. Time Spent With Patient Time: Total time spent is greater than 50% in coordination of care (as documented) at patient's floor/unit and/or counseling patient: Exam Const: General: healthy appearing, comfortable and no acute distress Eyes: General: appearance normal, both eyes and all related structures Resp: Effort & Inspection: normal respiratory effort GI: Other: PUPPS rash on abdomen Psych: Affect: normal affect Other: Abd: fundus firm below umbilicus, nontender Ext: nontender
--- NOTE | 2021-09-28 10:37 | PM.DS ---
DS: Admitting Diagnosis Discharge Date 09/28/2021 Admitting Diagnosis Premature rupture of membranes DS: Discharge Diagnosis Discharge Diagnosis (1) Delivery normal: Code(s): O80 - Encounter for full-term uncomplicated delivery Status: Acute (2) PUPP (pruritic urticarial papules and plaques of ): Code(s): O26.86 - Pruritic urticarial papules and plaques of (PUPPP) Status: Acute DS: Summary Hospital Course Reason for hospitalization: Labor Hospital Course: Patient admitted for labor. She had PROM. Labor was augmented. She had an uncomplicated vaginal delivery. she did well. well. She did develop a rash on her abdomen on PPD1 consistent with PUPPS. She was previously using benadryl cream. Hydrocortisone cream was added and this helped the itchiness rash better. Discharge precautions discussed with her. Status at Discharge Functional status at discharge: independent ambulation Time Spent with Patient Time attestation: Total time spent providing and/or coordinating discharge services: Exam Const: General: cooperative Orientation/consciousness: oriented to person, oriented to place and oriented to time HENMT: General nose exam: Normal external nose present Eyes: General: appearance normal, both eyes and all related structures Resp: Effort & Inspection: normal respiratory effort GI: Inspection: normal to inspection Skin: General skin exam: normal color Neuro: General: oriented to person, oriented to place and oriented to time Extrem: General: normal to inspection and no calf tenderness Psych: Appearance: grossly normal Mental Status: mental status grossly normal DS: Data Data Completed and Pending Labs on day of discharge: Labs from last 24 hours 09/27/21 10:43 Hgb 10.4 L D Hct 31.0 L Discharge Plan Discharge Attending physician on discharge: Michela Hensley Consulting providers: Oswaldo Castro Discharging Clinician: Ye Sahu Anticipated Discharge Date/Time: 09/28/21 10:28 Patient Disposition: Home, Self-Care Activity: may shower, no straining and pelvic rest Diet: regular Discharge Instructions: Pelvic rest for 4-6 weeks. May take over the counter Ibuprofen or Tylenol for pain. Call if saturating more than a pad an hour, leg redness, pain and swelling, temperature>100.4. May use the over the counter hydrocortisone cream, benadryl or caladryl for itching, no hot showers, Aveeno oatmeal bath. Take daily PNV. Patient Instructions: Antibiotic Form Stand Alone Forms: General Discharge Information Follow-up/Referrals: Michela Hensley MD [Physician] - Call for Appointment Discharge Medications: No Action DHA 200 mg capsule 200 mg PO DAILY RF: 0 cholecalciferol (vitamin D3) 50 mcg (2,000 unit) capsule 50 mcg PO DAILY RF: 0 Benadryl Itch Stopping 1-0.1 % cream 1 applic topical BID RF: 0 (DME) blood pressure monitor Kit See Rx Instructions .Route Qty: 1 RF: 0 Date of admission: 09/25/21 11:24 Primary Care Provider: Jaxon Chauhan Admitting Provider: Michela Hensley Attending physician on admission: Michela Hensley Condition: Stable
--- NOTE | 2021-09-28 11:11 | PC.NURSE ---
2812 - 3256 Mother led the conversation with regards to her experience feeding her baby so far. Mother is a little emotional related to the baby having a stool that had been waited on for some time. Encouraged mother on good latch, positioning and stimulating infant to swallow (drink) at the breast and not to just hand-out. Mother demonstrates active nursing compressing her breast to encourage milk flow. Reminded parents to use good handwashing to prevent infection. Infant has had adequate feedings in the past 24 hours and meets the outcomes for weight, output and jaundice. Mother states she feels confident to continue effectively her infant at home. Reviewed production of human milk, transition of milk, signs of adequate intake and engorgement prevention/relief and when to call the care provider using the mom and baby guide. Reviewed community resources and outpatient services as listed in the mom and baby guide/[facility] website. Reinforced watching for feeding cues with responsive feeding and how to stimulate to initiate feeding three hours from the start of the last feeding. Mother voiced understanding of information shared. Reported to primary RN.
[2021-09-28] MEDS: HYDROCORTISONE 1% 30 GM CREAM 1 APPLIC TOPICAL (13:09)
[2021-09-29 07:49] VITALS: BP 149/80; PULSE 93; RESP 20; TEMP 37.3; O2SAT 100
== END 2021-09-28 13:50 | disposition home or self-care (01) | DRG 806 ==
LOC: ANHOB2 09-28 10:31 → ANHLDR 10-01 11:00 → ANHOB2 10-01 11:00
PROVIDERS: Admitting Provider Student in an Organized Health Care Education/Training Program; PCP Internal Medicine; Visit Provider Obstetrics & Gynecology
DX: O42.92 Full-term premature rupture of membranes, unspecified as to length of time between rupture and onset of labor (principal); O72.1 Other immediate postpartum hemorrhage; Z37.0 Single live birth; O71.4 Obstetric high vaginal laceration alone; Z3A.38 38 weeks gestation of pregnancy; O76 Abnormality in fetal heart rate and rhythm complicating labor and delivery; O69.82X0 Labor and delivery complicated by other cord entanglement, without compression, not applicable or unspecified; O26.86 Pruritic urticarial papules and plaques of pregnancy (PUPPP)
CPT/HCPCS: 36415; 85014; 85018; 85025; 86592; 86762; 86850; 86900; 86901; 90710; 90715; A9270; J2405; J2590; J2795; J7120

== ENCOUNTER 2021-09-29 08:58 | Outpatient (CLI) | payer BC, SELFPAY ==
[2021-09-29 09:15] VITALS: BP 139/85; PULSE 90
[2021-09-29 09:19] LABS: Basophils Percent Auto 0.4 % (0.2-1.2); Eosinophils Absolute Auto 0.3 K/mm3 (0-0.3); Eosinophils Percent Auto 3.2 % (0-4.4); Hematocrit 31.2 % (37.0-47.0); Hemoglobin 10.2 g/dL (12.0-15.0); Immature Granulocyte Absolute 0.16 K/mm3 (0.00-0.031); Immature Granulocyte Percent A 1.8 % (0-0.5); Lymphocytes Absolute Auto 1.01 K/mm3 (0.9-3.2); Lymphocytes Percent Auto 11.2 % (18.3-44.2); Mean Corpuscular HGB Conc 32.7 g/dl (32-36); Mean Corpuscular Hemoglobin 29.2 pg (26-34); Mean Corpuscular Volume 89.4 fl (80-100); Mean Platelet Volume 11.8 fl (7.4-10.4); Monocytes Absolute Auto 0.5 K/mm3 (0.1-0.6); Monocytes Percent Auto 5.5 % (2.6-8.5); Neutrophils Percent Auto 77.9 % (45.5-73.1); Platelet Count Result 168 k/mm3 (150-375); Red Blood Count 3.49 M/mm3 (4.2-5.4); Red Cell Distribution Width 13.2 % (11.5-14.5)
[2021-09-29 09:29] LABS: Alanine Aminotransferase 34 U/L (4-35); Albumin Level 3.2 g/dL (3.5-5.1); Alkaline Phosphatase 103 U/L (38-126); Anion Gap 4 mmol/L (8-16); Aspartate Amino Transferase 59 U/L (14-36); Bilirubin,Total 0.4 mg/dL (0.2-1.3); Blood Urea Nitrogen 9 mg/dL (7-17); Calcium 9.3 mg/dL (8.4-10.2); Carbon Dioxide 23 mmol/L (22-30); Chloride 110 mmol/L (98-107); Estimated Glomerular Filt Rate > 60; Glucose 77 mg/dL (65-110); Potassium 3.6 mmol/L (3.4-5.0); Sodium 137 mmol/L (137-145); Uric Acid 5.5 mg/dL (2.5-7.5)
[2021-09-29 09:30] VITALS: BP 137/80; PULSE 89
--- NOTE | 2021-09-29 09:50 | PC.NURSE ---
0901- Spoke to Dr. Sahu, labs and BPs reviewed. Orders to discharge to home with precautions with follow up in office this week. patient to call to get an appt friday.
== END 2021-09-29 09:52 | disposition home or self-care (01) ==
LOC: ANHOBOP 09:02 → ANHOBPP 09:02
PROVIDERS: PCP Internal Medicine; Visit Provider Obstetrics & Gynecology
DX: O13.9 Gestational [pregnancy-induced] hypertension without significant proteinuria, unspecified trimester (principal); Z3A.00 Weeks of gestation of pregnancy not specified
CPT/HCPCS: 36415; 80053; 84550; 85025; 99199

== ENCOUNTER → 2022-06-14 01:23 | Outpatient (CLI) | payer BC, SELFPAY ==
[2022-06-14 11:16] LABS: SARS-CoV-2 RNA PCR Negative
== END ==
PROVIDERS: PCP Nurse Practitioner; Visit Provider Nurse Practitioner
DX: R05.9 Cough, unspecified (principal); Z20.822 Contact with and (suspected) exposure to COVID-19
CPT/HCPCS: C9803; U0003; U0005

== ENCOUNTER 2023-12-05 09:13 | Outpatient (CLI) | payer BC, SELFPAY ==
[2023-12-05 09:31] LABS: Basophils Absolute Auto 0.1 K/mm3 (0.0-0.1); Basophils Percent Auto 1.4 % (0.2-1.2); Eosinophils Absolute Auto 0.1 K/mm3 (0-0.3); Eosinophils Percent Auto 2.3 % (0-4.4); Hematocrit 42.9 % (37.0-47.0); Hemoglobin 13.6 g/dL (12.0-15.0); Immature Granulocyte Absolute 0.01 K/mm3 (0.00-0.031); Immature Granulocyte Percent A 0.2 % (0-0.5); Lymphocytes Absolute Auto 1.79 K/mm3 (0.9-3.2); Lymphocytes Percent Auto 32.1 % (18.3-44.2); Mean Corpuscular HGB Conc 31.7 g/dl (32-36); Mean Corpuscular Hemoglobin 25.5 pg (26-34); Mean Corpuscular Volume 80.3 fl (80-100); Monocytes Absolute Auto 0.4 K/mm3 (0.1-0.6); Monocytes Percent Auto 7.5 % (2.6-8.5); Neutrophils Absolute Auto 3.2 K/mm3 (1.3-6.7); Neutrophils Percent Auto 56.5 % (45.5-73.1); Platelet Count Result 246 k/mm3 (150-375); Red Blood Count 5.34 M/mm3 (4.2-5.4); Red Cell Distribution Width 15.2 % (11.5-14.5); White Blood Count 5.6 K/mm3 (4.5-10.0)
[2023-12-05 09:39] LABS: Blood Urea Nitrogen 11 mg/dL (8-26); Carbon Dioxide 27 mmol/L (22-30); Chloride 104 mmol/L (98-109); Estimated Glomerular Filt Rate > 60; Glucose 89 mg/dL (70-105); Ionized Calcium (POC) 1.29 mmol/L (1.11-1.31); Potassium 4.1 mmol/L (3.5-4.9); Sodium 141 mmol/L (138-146)
[2023-12-05 12:50] LABS: Alanine Aminotransferase 14 U/L (6-35); Albumin Level 4.5 g/dL (3.5-5.1); Alkaline Phosphatase 66 U/L (38-126); Anion Gap 6 mmol/L (4-12); Aspartate Amino Transferase 22 U/L (14-36); Bilirubin,Total 0.4 mg/dL (0.2-1.3); Blood Urea Nitrogen 12 mg/dL (7-17); Calcium 9.9 mg/dL (8.4-10.2); Carbon Dioxide 26 mmol/L (22-30); Chloride 107 mmol/L (98-107); Estimated Glomerular Filt Rate > 60; Glucose 89 mg/dL (65-110); Potassium 4.2 mmol/L (3.4-5.0); Sodium 139 mmol/L (137-145)
== END 2023-12-05 09:14 | disposition home or self-care (01) ==
LOC: ANHLAB 09:15
PROVIDERS: PCP Nurse Practitioner; Visit Provider Internal Medicine Hematology & Oncology
DX: E83.110 Hereditary hemochromatosis (principal)
CPT/HCPCS: 36415; 80047; 80053; 85025

== ENCOUNTER 2024-07-07 11:46 | Outpatient (CLI) | payer BC, SELFPAY ==
[2024-07-07 12:20] LABS: Hematocrit 44.9 % (37.0-47.0); Hemoglobin 15.2 g/dL (12.0-15.0); Mean Corpuscular HGB Conc 33.9 g/dl (32-36); Mean Corpuscular Hemoglobin 29.5 pg (26-34); Mean Corpuscular Volume 87.2 fl (80-100); Mean Platelet Volume 11.9 fl (7.4-10.4); Platelet Count Result 229 k/mm3 (150-375); Red Blood Count 5.15 M/mm3 (4.2-5.4); Red Cell Distribution Width 12.5 % (11.5-14.5); White Blood Count 7.9 K/mm3 (4.5-10.0)
[2024-07-07 17:58] LABS: Iron 110 ug/dL (37-170)
[2024-07-07 18:08] LABS: Percent Iron Saturation 36 % (20-50)
[2024-07-07 19:44] LABS: Folic Acid > 20.0 ng/mL (2.76->20)
== END 2024-07-07 11:47 | disposition home or self-care (01) ==
LOC: ANHLAB 11:47
PROVIDERS: PCP Nurse Practitioner; Visit Provider Internal Medicine Hematology & Oncology
DX: E83.110 Hereditary hemochromatosis (principal)
CPT/HCPCS: 36415; 82607; 82728; 82746; 83540; 83550; 85027

== ENCOUNTER 2024-08-21 18:39 | Emergency (ER) | payer BC, SELFPAY ==
[2024-08-21 18:59] VITALS: BP 141/77; PULSE 131; RESP 16; TEMP 37.3; O2SAT 98
--- NOTE | 2024-08-21 19:17 | ED_ITS ---
HPI - URI/Sore Throat General Chief Complaint: Upper Respiratory Infection Stated Complaint: sore throat, migraine, pt is Time Seen by Provider: 08/21/24 19:10 Source: patient, family (Significant other) and RN notes reviewed Mode of arrival: ambulatory Limitations: no limitations History of Present Illness HPI Narrative: Patient presents today complaining of cough, headache, sore throat, bilateral ear pain, nasal congestion. Symptoms began yesterday morning. Currently rates her discomfort 4/10 and has tried Tylenol and Mucinex without much relief. Patient is currently . Related Data Home Medications ?Medication ?Instructions ?Recorded ?Confirmed ?Last Taken ?Type vitamin no.102-iron 90 1 cap PO DAILY 12/30/23 08/21/24 Unknown History mg-folate 1 mg-dha 200 mg capsule Allergies Allergy/AdvReac Type Severity Reaction Status Date / Time penicillin G Allergy Mild Unknown Verified 08/21/24 18:53 Penicillins Allergy Hives Verified 08/21/24 18:53 Review of Systems Review of Systems: CONSTITUTIONAL: Denies body aches, chills, or sweats.+ fever EYES: Denies visual changes, redness, or discharge. ENT: Denies rhinorrhea. + congestion, sore throat, bilateral ear pain CARDIOVASCULAR: Denies chest pain, palpitations, or edema. RESPIRATORY: Denies dyspnea.+ cough GASTROINTESTINAL: Denies abdominal pain, nausea, vomiting, or diarrhea. GENITOURINARY: Denies dysuria or hematuria. SKIN: Denies rash, itching, or wounds. MUSCULOSKELETAL: Denies back pain, joint pain, or myalgia. NEUROLOGIC: Denies numbness, tingling, or weakness.+ headache PSYCH: Denies depression or anxiety. COUNT INCLUDES THE [facility] Past Medical History Medical History Encounter for supervision of normal in second trimester Encounter for related examination in second trimester History of vaginal delivery Acid reflux Broken wrist Right Hemochromatosis Surgical History Surgical History History of section Family History Family History Mother Ulcer Grandparent Cancer Heart disease Lung cancer Carcinoma of colon Social History Social History Smoking status: Never smoker Alcohol intake: former Substance use: never Lack of Transportation: No Lack of Food: Never True Current Housing: I Have Housing Concerned About Future Housing: No Difficulty Paying Gas/Electric Bills: No Difficulty Paying for Meds: No Currently Unemployed: No Education: Master's Degree or Higher Difficulty w/ Childcare or Family Care: No Living arrangements: with family Occupation/Education: occupation Additional occupation/education comments: Resident Caregiver Gender identity (if verbalized by the patient): Female Sexual Orientation (if Verbalized by the Patient): Straight or Heterosexual Spiritual care concerns: No Comments At time of signature, I have reviewed and agree with nursing past medical, surgical, social and family history unless otherwise noted. Please see nursing chart for further information. There is no relevant family history pertinent to the presenting complaint Exam Narrative: GENERAL: Ill-appearing, well-nourished, and in no acute distress. HEAD: Normocephalic, atraumatic. EYES: EOMI. No redness or drainage. Conjunctivae normal. ENT: Mucous membranes pink and moist. Nares congested with rhinorrhea. TMs normal bilaterally. Throat mildly erythematous without edema or exudate. Uvula midline. NECK: Normal AROM. Supple. No lymphadenopathy. CHEST: No respiratory distress. Clear to auscultation. HEART: Regular rhythm. Tachycardia. No murmur appreciated. EXTREMITIES: Normal range of motion. No edema. SKIN: Warm, dry, no rash. Capillary refill normal. Normal skin turgor. NEURO: No focal deficits. Alert and oriented x3. Gait steady. PSYCH: Normal affect. No signs of depression or anxiety. Course Course Level of Care: Express Care Visit Vital Signs Vital signs: Vital Signs Temperature 99.1 F 08/21/24 18:59 Pulse Rate 131 H 08/21/24 18:59 Respiratory Rate 16 08/21/24 18:59 Blood Pressure 141/77 H 08/21/24 18:59 Pulse Oximetry 98 08/21/24 18:59 Temperature 99.1 F 08/21/24 18:59 Pulse Rate 131 H 08/21/24 18:59 Respiratory Rate 16 08/21/24 18:59 Blood Pressure 141/77 H 08/21/24 18:59 Pulse Oximetry 98 08/21/24 18:59 Reviewed MDM - URI/Sore Throat MDM Narrative Medical decision making narrative: Influenza a positive. Tamiflu prescription sent to pharmacy. Anticipatory guidance given. ED precautions given. Differential Diagnosis Differential diagnosis: Likely upper respiratory infection, otitis media, viral infection, influenza and other (Strep throat, COVID-19) Lab Data Attestation: I reviewed the patient's lab results. Lab results narrative: COVID-19 negative. Rapid strep negative. Influenza a positive Critical Care Time Critical Care Time Critical Care Time: No Discharge Plan Discharge Clinical Impression: Influenza A Patient Disposition: Home, Self-Care Condition: Stable Instructions: Influenza (DC) Additional Instructions: You have tested positive for influenza A. Please take the Tamiflu as prescribed. Continue Tylenol and Mucinex as needed. Rest and drink plenty of fluids. Follow-up with your OBGYN or PCP with any additional concerns. As discussed, if you develop any worsening symptoms such as shortness of breath or chest pain, please go to the ER for further evaluation and treatment. Your blood pressure was elevated above 120/80 today at Urgent Care. This puts you above the threshold for follow up. Please schedule a followup visit with your personal physician as soon as possible, for further evaluation and treatment. Even blood pressure exceeding 120/80 may indicate pre-hypertension. Patient Language: [place] Prescriptions: New oseltamivir [Tamiflu] 75 mg capsule 75 mg PO Q12H 5 Days Qty: 10 0RF No Action PNV 193-[id number]-[id number]-[id number] 90 mg iron- 1 mg-200 mg capsule 1 cap PO DAILY Follow-up/Referrals: Denise Wills BILINGUAL RECRUITER [Primary Care Provider] - Time of Disposition: 19:21
[2024-08-21 19:19] LABS: EDCOVIDSCREEN Negative (Negative); EDINFLUASCREEN Positive (Negative); EDINFLUBSCREEN Negative (Negative); EDSTREPNEGPOS1 Negative (Negative)
== END 2024-08-21 19:28 | disposition home or self-care (01) ==
PROVIDERS: Emergency Provider Nurse Practitioner; PCP Nurse Practitioner
DX: O99.519 Diseases of the respiratory system complicating pregnancy, unspecified trimester (principal); J10.1 Influenza due to other identified influenza virus with other respiratory manifestations; Z20.822 Contact with and (suspected) exposure to COVID-19; O99.619 Diseases of the digestive system complicating pregnancy, unspecified trimester; K21.9 Gastro-esophageal reflux disease without esophagitis; Z3A.00 Weeks of gestation of pregnancy not specified
CPT/HCPCS: 87081; 87426; 87804; 87880; 99213; G0463